=== PATIENT | female | born 2000 | race Asian ===

== ENCOUNTER 2018-10-28 19:55 | Emergency (ER) | payer SELFPAY ==
[2018-10-28 20:06] VITALS: BP 121/79; TEMP 97.9
[2018-10-28 22:22] VITALS: PULSE 85
== END 2018-10-28 22:24 | disposition home or self-care (01) ==
LOC: COL.ER 19:55
DX: S50.02XA Contusion of left elbow, initial encounter (principal); M25.422 Effusion, left elbow; W00.0XXA Fall on same level due to ice and snow, initial encounter; Y92.410 Unspecified street and highway as the place of occurrence of the external cause